=== PATIENT | female | born 1975 | race Caucasian/White ===

== ENCOUNTER 2019-09-11 03:41 | Emergency (ER) | payer BC ==
[~2019-09-11] VITALS: Ht 172.7 cm; Wt 66.7 kg
[~2019-09-11 03:41] MED LIST: ALPR0.5T PO
[2019-09-11 03:45] VITALS: Ht 172.7 cm; Wt 66.7 kg
[2019-09-11 06:06] VITALS: BP 111/70; PULSE 76; RESP 12
== END 2019-09-11 06:06 | disposition home or self-care (01) ==
LOC: E/R 03:41
DX: R45.1 Restlessness and agitation (principal)
CPT/HCPCS: 36415; 71045; 80048; 84484; 84703; 85025; 93005